=== PATIENT | male | born 1955 | race African-American/Black ===

== ENCOUNTER 2016-11-22 15:21 | Observation (INO) | payer BC ==
[~2016-11-22] VITALS: Ht 185.4 cm; Wt 89.5 kg
[~2016-11-22 15:21] MED LIST: ASPIR 8181 M1 PO; ERGOCALCIF50000 UNIT PO; PERCOCET 5/31 TABLET PO; PRAVASTATIN SOD40 MG PO; XARELTO1 EACH PO
[2016-11-22 16:45] LABS: EOSINOPHIL (%) 0 % (0-5); HEMATOCRIT 39.2 % (38.0-50.0); LYMPHOCYTE COUNT 1.1 K/uL (1.0-2.8); MCH 32.4 PG (29.0-34.0); MCHC 34.9 G/DL (30.0-36.0); MCV 92.7 FL (86-99); MONOCYTE (%) 6.1 % (3-12); MONOCYTE COUNT 0.3 K/uL (0-0.8); NEUTROPHIL (%) 69.3 % (45-76); NEUTROPHIL COUNT 3.1 K/uL (1.8-6.4); PLATELET COUNT 169 K/uL (156-360); RBC DIS.WIDTH-CV 13.2 % (11.8-14.6); RBC DIS.WIDTH-SD 43.4 % (39-53); RED BLOOD COUNT 4.23 M/uL (4.00-5.50); WHITE BLOOD COUNT 4.4 K/uL (4.1-10.2)
[2016-11-22 16:52] LABS: CHLORIDE 107 mEq/L (99-109); POTASSIUM 4.6 mEq/L (3.7-5.4); SODIUM 138 mEq/L (136-147)
[2016-11-22 16:54] LABS: GLUCOSE 112 mg/dL (70-99)
[2016-11-22 16:56] LABS: ANION GAP 7 MEQ/L (2-14)
[2016-11-22 16:58] LABS: GFR ESTIMATE (CALCULATED) > 59 mL/min/
[2016-11-22 16:59] LABS: UREA NITROGEN (BUN) 15 mg/dL (9-23)
[2016-11-22 17:05] LABS: TROP-I INTERPRETATION NEGATIVE; TROPONIN-I < 0.01 ng/mL (0.0-0.30)
[2016-11-22 18:49] LABS: HDL CHOLESTEROL 51 MG/DL (Desirable>=40); LDL CHOLESTEROL 56 mg/dL (Desirable<100); NON-HDL CHOLESTEROL 68 mg/dL (Desirable<160); SAMPLE HEMOLYSIS CHECK 0; SAMPLE ICTERIC CHECK 0; SAMPLE LIPEMIA CHECK 0; TOTAL CHOLESTEROL 119 mg/dL (Desirable<200); TRIGLYCERIDES 58 MG/DL (Normal: <150)
[2016-11-22 19:18] LABS: Estimated Average Glucose 111 mg/dL (70-123); HEMOGLOBIN A1c (GLYCOHEMOGLOB) 5.5 % HGB (Below 5.7)
[2016-11-22 21:06] VITALS: BP 113/57
[2016-11-22 21:19] VITALS: BP 113/57
[2016-11-23 00:31] VITALS: BP 119/63
[2016-11-23 04:54] VITALS: BP 106/60
[2016-11-23 07:53] VITALS: BP 121/63
[2016-11-23 11:55] VITALS: BP 144/67
[2016-11-23] MEDS ORDERED: CLOPIDOGREL75 MG PO (14:57)
== END 2016-11-23 15:26 | disposition home or self-care (01) ==
LOC: EME 15:21 → EDOF 17:58 → 5WEST 19:39
PROVIDERS: Emergency Medicine; Internal Medicine
DX: R42 Dizziness and giddiness (principal); R27.8 Other lack of coordination; Z86.73 Personal history of transient ischemic attack (TIA), and cerebral infarction without residual deficits; I10 Essential (primary) hypertension; E78.5 Hyperlipidemia, unspecified; R11.0 Nausea; Z86.711 Personal history of pulmonary embolism; Z86.718 Personal history of other venous thrombosis and embolism; Z79.82 Long term (current) use of aspirin
CPT/HCPCS: 70450; 70551; 80048; 80061; 83036; 84484; 85025; 93005; 99281; 99285; G0378; J7030